=== PATIENT | male | born 1970 | race Caucasian/White ===

== ENCOUNTER → 2018-09-01 16:44 | Outpatient (CLI) | payer OTHER, SELFPAY ==
--- NOTE | 2018-09-01 16:53 | CT_ITS ---
STUDY: CT RIGHT FOOT REASON FOR EXAM: Male, 47 years old. Follow-up of the fracture of the second and fifth metatarsals. RADIATION DOSAGE (If Supplied By Facility): CTDIvol = ( 10.75 ) mGy, DLP = ( 296.08 ) mGycm TECHNIQUE: Thin section transaxial imaging of the foot was obtained, with sagittal and coronal reconstructed images. Individualized dose optimization techniques were used for this CT. COMPARISON: None. FINDINGS: Normal talus, calcaneus, and tarsal bones. Normal visualized tibiotalar, subtalar, talonavicular, calcaneocuboid, tarsal and tarsometatarsal articulations. Normal metatarsi. Normal metatarsophalangeal joint of the great toe. Bipartite tibial sesamoid. Normal interphalangeal joint of the great toe. Normal phalanges of the great toe. Normal second through fifth metatarsophalangeal joints. Normal interphalangeal joints and phalanges of the lesser toes. Diffuse soft tissue swelling. No fracture is seen. CT/Extremity Lower without Contra IMPRESSION: Diffuse soft tissue swelling. No fracture is seen. Correlation with plain radiographs recommended. Electronically Signed: Nikhil Mendez MD at 13:36 EST , Service support ,
== END ==
PROVIDERS: Referring Provider Podiatrist Foot & Ankle Surgery; Visit Provider Podiatrist Foot & Ankle Surgery
DX: S92.351A Displaced fracture of fifth metatarsal bone, right foot, initial encounter for closed fracture (principal); S92.324A Nondisplaced fracture of second metatarsal bone, right foot, initial encounter for closed fracture
CPT/HCPCS: 73700